=== PATIENT | male | born 1945 | race Caucasian/White ===

== ENCOUNTER 2016-05-25 08:01 | Day surgery (SDC) | payer OTHER ==
[2016-05-11 10:32] VITALS: BMI 35.0
--- NOTE | 2016-05-11 11:11 | PAT Medication Instructions ---
Service Date May 11, 2016. Current Home Medication List Aspirin (Aspir-Low), 81 MG PO QAM Carvedilol (Carvedilol), 12.5 MG PO BID Celecoxib (CeleBREX), 1 CAP PO QAM Cholecalciferol (Vitamin D3), 1 TAB PO QAM Colestipol Hcl (Colestid), 1 GM PO QAM Lisinopril (Lisinopril), 5 MG PO QAM Vitamin E (Vitamin E), 200 UNITS PO QAM [Decongestant], 1 TAB PO HS Medication Instructions For Your Scheduled Surgery - Stopped Already: Celecoxib (CeleBREX), 1 CAP PO QAM - Hold the following medications as of 05/12/16: Vitamin E (Vitamin E), 200 UNITS PO QAM - Hold the following medications the morning of surgery: Aspirin (Aspir-Low), 81 MG PO QAM (per surgeon's instructions) Cholecalciferol (Vitamin D3), 1 TAB PO QAM Colestipol Hcl (Colestid), 1 GM PO QAM Lisinopril (Lisinopril), 5 MG PO QAM - Take the following medications the morning of surgery with a sip of water OTHERWISE NOTHING TO EAT OR DRINK AFTER MIDNIGHT: Carvedilol (Carvedilol), 12.5 MG PO BID - Take the following medications as scheduled the night before surgery: [Decongestant], 1 TAB PO HS Carvedilol (Carvedilol), 12.5 MG PO BID If you have any questions please call us at [phone] or [phone] or [phone]
[2016-05-11 12:15] LABS: BASO % 0.4 %; BASO ABS # 0.04 K/uL (0-0.2); COMPLETE YES; EOS % 2.2 %; HEMATOCRIT 42.3 % (42-52); IG% 0.3 %; LYMPH % 29.9 %; LYMPH ABS # 3.14 K/uL (1.2-3.4); MEAN CELL VOLUME 92.2 fL (80-100); MEAN CORPUSCULAR HEMOGLOBIN 30.7 pg (25-34); MEAN CORPUSCULAR HGB CONC 33.3 g/dl (32-36); MEAN PLATELET VOLUME 9.5 fL (7.4-10.4); MONO % 7.7 %; NEUT % 59.5 %; PLATELET COUNT 248 K/uL (130-400); RED BLOOD COUNT 4.59 M/uL (4.7-6.1); WHITE BLOOD COUNT 10.51 K/uL (4.8-10.8)
[2016-05-11 12:18] LABS: URINE APPEARANCE CLEAR (CLEAR); URINE BILIRUBIN NEG (NEG); URINE COLOR YELLOW; URINE NITRITE NEG (NEG); URINE SPECIFIC GRAVITY 1.015 (1.000-1.030); UROBILINOGEN NEG (NEG)
[2016-05-11 12:20] LABS: MANUAL MICROSCOPIC REQUIRED? NO; REVIEW REQ? NO
[2016-05-11 13:40] LABS: BUN/CREATININE RATIO 19.7 (10-20); CALCIUM 8.8 mg/dl (8.5-10.1); POTASSIUM 4.3 mmol/L (3.5-5.1)
--- NOTE | 2016-05-17 13:33 | History and Physical ---
History & Physical Date of Service May 17, 2016. History & Physical Plan of care discussed with Dr. Wakefield CHIEF COMPLAINT: Bilateral lower extremity neuropathic pain HISTORY OF PRESENT ILLNESS: Mr. Vidal is a 70 year old white male that is well known to the [facility] with a history of spinal stenosis and neurogenic claudication. Patient was experiencing neuropathic pain into the bilateral lower extremities which was causing limitation into his ambulatory and ADL activities. He did receive a spinal cord stimulator implantation on 12/10/2014 and a revision on 12/23/14. Patient was experiencing adequate coverage of the neuropathic pain using the spinal cord stimulator. He did start to experience hip pain and received intra-articular hip injections which also relieved the neuropathic pain in the legs. He has not used the spinal cord stimulator since the hip injection. Mr. Vidal is planning for a hip replacement. The spinal cord stimulator battery is causing discomfort as the battery is located at his belt line. PAST MEDICAL HISTORY: 1. Obstructive sleep apnea 2. History of myocardial infarction 2011 3. Hypertension 4. Coronary artery disease 5. Chronic obstructive pulmonary disease 6. Osteoarthritis 7. History of angioplasty/stent placement 2011 8. Abdominal aortic aneurysm 9. 90 pack history of tobacco abuse 10. Spinal canal stenosis PAST SURGICAL HISTORY: 1. L3-L5 laminectomy and fusion 01/24/2014 2. Coronary artery stent placement 3. Tonsillectomy and Adenoidectomy 4. Bilateral knee arthroscopy 5. Cholecystectomy 6. Herniorrhaphy 7. Colon polypectomy SOCIAL HISTORY: Mr. Vidal is and resides with his spouse. Smokes approximately 1 pack per day with a 90 pack year history. Rare alcohol consumption. Denies any illicit drug use. WORK HISTORY: Patient is retired. 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 He goes to the [place] for months at a time to prospect. ALLERGIES: Cardura MEDICATIONS: 1. Aspirin 81 mg daily 2. Carvedilol 12.5 mg twice daily 3. Celebrex 200 mg daily 4. Lisinopril 5 mg daily REVIEW OF SYSTEMS: Denies any constitutional, cardiac, pulmonary, neurological, GI, , extremity, endocrine, neuro, ENT, dermatological, or musculoskeletal complaints other than stated in HPI PHYSICAL EXAMINATION: VITAL SIGNS: Per admission GENERAL: Mr. Vidal is a 70 year old white male. Well nourished; well appearing; in no acute distress. Cognition intact and speech is appropriate. HEAD: Normocephalic; atraumatic. EYES: Pupils are round, equal, and reactive to light; EOM intact. ENT: No external ear discharge or lesions. No rhinorrhea or epistaxis. No mucosal lesions. NECK: Full ROM; trachea is midline; no TTP; no cervical lymphadenopathy. CARDIAC: Regular rate and rhythm. No murmur, rubs, or gallops. PULM: Clear to auscultation. No wheezes, rales, or rhonchi. CHEST: Regular chest respiration and excursion. + barrel chested EXTREMTIES: There is 5/5 strength of the bilateral lower extremities. Sensation of the legs are equal bilaterally. Negative straight leg raise bilaterally BACK: Complete loss of lumbar lordosis. Well healed surgical incision of the entire lumbar spine. Midline and facet joints are nontender. No SI joint tenderness. No tenderness of the quadratus lumborum, gluteal, or piriformis musculature NEURO: CN II-XII grossly intact with no focal deficits noted. AAO x 3. Patellar Reflex L +1 R +1 Achilles Reflex L +1 R +1 SKIN: Spinal cord stimulator battery is located in the right gluteus without erythema, skin breakdown, or erythema. Tenderness of the battery site. ASSESSMENT: Bilateral lower extremity neurogenic claudication secondary to lumbar spinal canal stenosis status post L3 through L5 lumbar decompression TREATMENT: Mr. Vidal has chronic bilateral lower extremity neuropathic pain and has tried numerous medications and eventually a spinal cord stimulator implantation. Patient was initially experiencing adequate pain relief but the relief is no longer being provided. He does have bilateral hip pain and received intra-articular hip injections which provided pain relief and he is planning on receiving hip replacements. As the spinal cord stimulator battery is at his belt line and rubs against his pain which is uncomfortable to the patient as well as the stimulator no longer providing pain relief, he would like the spinal cord stimulator removed. He is scheduled for the battery removal on 05/25/16. Risks and benefits were reviewed with the patient. The procedure was explained to the patient. Risks and benefits were explained and he understands. Patient would like to proceed with the surgery.
[~2016-05-25] VITALS: Ht 180.3 cm; Wt 114.3 kg
[~2016-05-25 08:01] MED LIST: ASPI81TA25 PO; CEFAZOLIN 2000 MG/60 ML D5W IV SCH; CHOL1000 PO; CLB/200 PO; COLE1TAB PO; CRG125 PO; DECONGESTANT PO; LACTATED RINGER'S 1000ML 1,000 ML IV SCH; LSN5 PO; VITA200C5 PO
[2016-05-25] MEDS ORDERED: ACET-1311 PO (08:47)
[2016-05-25 08:48] VITALS: BP 136/79; PULSE 72; TEMP 36.4; O2SAT 97; Ht 180.3 cm; Wt 114.3 kg
[2016-05-25] MEDS ORDERED: FENTANYL CITRATE INJ 50 MCG/1 ML 2 ML VIAL IV PRN (09:15)
[2016-05-25] MEDS ORDERED: MEPERIDINE HCL 25 MG/ML CARP IV PRN (09:15)
[2016-05-25] MEDS ORDERED: HYDROmorphone INJ 1 MG/ML SYR IV PRN (09:15)
[2016-05-25] MEDS ORDERED: ATROPINE SULFATE 0.1 MG/ML 5ML SYR IV PRN (09:15)
[2016-05-25] MEDS ORDERED: ONDANSETRON INJ 2 MG/ML 2 ML VIAL IV PRN (09:15)
[2016-05-25] MEDS ORDERED: LABETALOL HCL IV 5 MG/ML 20ML IV PRN (09:15)
[2016-05-25] MEDS ORDERED: EpHEDrine SULFATE INJ 50 MG/ML AMP IV PRN (09:15)
[2016-05-25] MEDS ORDERED: PROPOFOL IV EMULSION 10 MG/ML 20 ML VIAL IV ONE (10:00)
[2016-05-25] MEDS ORDERED: ROCURONIUM BROMIDE 10 MG/ML 5 ML VIAL ONE (10:00)
[2016-05-25] MEDS ORDERED: MIDAZOLAM HCL 1 MG/ML 2ML VIAL ONE (10:00)
[2016-05-25] MEDS ORDERED: LIDOCAINE HCL 2% 2 ML VIAL (20MG/ML) ONE (10:00)
[2016-05-25] MEDS ORDERED: FENTANYL CITRATE INJ 50 MCG/1 ML 2 ML VIAL ONE (10:01)
--- NOTE | 2016-05-25 10:14 | History & Physical Bridge Note ---
H&P Re-Evaluation Bridge Note: I have examined the patient, reviewed the History & Physical and in the interval since the performance of the History & Physical I have noted the following changes of clinical significance: No changes noted. H&P done by Chuyita Daigle PA-C was reviewed. It indicates that the patient scheduled for a battery replacement of the spinal cord stimulant. This is incorrect and the patient is scheduled for explantation of the entire spinal cord stimulator battery including the lead and the battery as the patient feels that it is not benefiting him anymore and is not necessary since he underwent a total hip replacement on the left side. He has noted complete resolution of his neuropathic pain and left lower extremity and the present time the stimulator battery is irritating him when he wears a belt. In because he is not using it, he wishes to have the entire system explanted. He is signed a consent authorizing to proceed.
--- NOTE | 2016-05-25 10:29 | Discharge Instructions ---
Discharge Instructions Date of Service May 25, 2016. Visit Reason for Visit: Pain At Spinal Cord Stimulator Battery Site Discharge Discharge Diagnosis / Problem: Explantiaotion of spnal cord system Discharge Goals Goal(s): Decrease discomfort Medications Stopped Medications Name(s): None Activity Recommendations Activity Limitations: as noted below Lifting Limitations: no more than 5 pounds, gradually increase as tolerated Exercise/Sports Limitations: gradually increase as tolerated May Resume Sexual Activity: when tolerated Shower/Bathe: may shower/bathe in 3 days Driving or Machine Use: resume 3 days after discharge Anesthesia . Post Anesthesia Instructions: If you have had General Anesthesia or IV Sedation: * Do not drive today. * Resume driving when surgeon permits. * Do not make important decisions or sign legal documents today. * Call surgeon for: 1. Temperature elevations greater than 101 degrees F. 2. Uncontrollable pain. 3. Excessive bleeding. 4. Persistent nausea and vomiting. 5. Medication intolerance (nausea, vomiting or rash). * For nausea and vomiting use only clear liquids such as: tea, soda, bouillon until nausea subsides, then gradually increase diet as tolerated. * If you have any concerns or questions, call your surgeon's office. If physician is unavailable and it is an emergency, call 911 or go to the nearest emergency room. . Diet Recommendations Recommended Home Diet: resume previous diet Procedures Procedures Performed: Explantation of spinal cord stimulator. Pending Studies Studies pending at discharge: no Medical Emergencies . Who to Call and When: Medical Emergencies: If at any time you feel your situation is an emergency, please call 911 immediately. . Non-Emergent Contact Non-Emergency issues call your: Primary Care Provider Call Non-Emergent contact if: temperature is above 100.5, your pain is not controlled, wound has increased drainage, wound has increased redness, you have any medication questions . . "Provider Documentation" section prepared by Ramsey Wakefield.
[2016-05-25] MEDS ORDERED: HYDROCODONE/ACETAMOPHEN 5/325MG TAB PO PRN (10:30)
[2016-05-25] MEDS ORDERED: BUPIVACAINE/EPINEPHRINE 0.25% 1:200,000 30 ML VIAL ONE (11:00)
[2016-05-25] MEDS ORDERED: BACITRACIN 50000 UNIT VIAL ONE (11:16)
[2016-05-25] MEDS ORDERED: PHENYLEPHRINE 100MCG/ML 5ML SYR ONE (11:38)
[2016-05-25] MEDS ORDERED: EpHEDrine SULFATE 50MG/5ML SYR ONE (11:38)
[2016-05-25] MEDS ORDERED: GLYCOPYRROLATE INJ 0.2 MG/ML VIAL ONE (11:38)
[2016-05-25] MEDS ORDERED: NEOSTIGMINE METHYLSULFATE 1 MG/ML 10ML VIAL ONE (11:38)
[2016-05-25] MEDS ORDERED: DEXAMETHASONE SOD INJ 4 MG/ML VIAL ONE (11:50)
[2016-05-25] MEDS ORDERED: ONDANSETRON INJ 2 MG/ML 2 ML VIAL ONE (11:50)
--- NOTE | 2016-05-25 12:34 | [facility] Operative Report ---
Operative Report Operative Date May 25, 2016. Pre-Operative Diagnosis Patient requesting removal of spinal cord stimulator system. Post-Operative Diagnosis same Procedure(s) Performed Explantation of spinal cord simulator leads and battery. Surgeon Dr. Wakefield Truck Washer Surgeon(s) Shivam Borrego -PAC Estimated Blood Loss 5 ML Findings See below. Specimens A: Spinal Cord Stimulator , leads and battery. Drains none Anesthesia Gen. endotracheal. Complication(s) None Disposition Recovery Room / PACU Description of Procedure REMOVAL OF IMPLANTED SPINAL CORD STIMULATOR SYSTEM Procedure: Explantation of spinal cord similar system. Preoperative Diagnosis: Resolved neuropathic pain. Patient requested no spinal cord similar system. Postoperative diagnosis: Same Surgeon: Dr. Wakefield Anesthesia: General/endotracheal Estimated blood loss: 10 mL Complications: None Specimen sent to pathology: Spinal cord similar battery and leads. Prior to starting, the Patients diagnosis and the procedure were reviewed with the patient in detail. Possible risks and complications including infection, bleeding, damage to surrounding structures and increased pain were discussed. Alternative therapies were also reviewed. Patients questions were answered and they agreed to proceed. Informed consent was obtained. Allergies and medication list was reviewed. The patient was brought to the procedure room. Immediately prior to starting the procedure, a time out was conducted with the staff and the patient where the patient was identified, proposed procedure was verified, consent was reviewed and the proper site for the planned procedure was identified. He was given preoperative antibiotics consisting of 2 grams of cefazolin intravenously. General anesthesia was induced and he was placed in prone position for the procedure. On examination, no signs of skin breakdown or infection were noted at the surgical site. The site was cleansed with DuraPrep followed by Betadine. Sterile drapes were applied. Fluoroscopy was utilized to identify the components of the spinal cord stimulator system including the leads. Using scalpel to incise the skin and then electrocautery for subcutaneous layers , the anchoring device for the leads was identified. Retaining sutures removed. The lead was easily removed intact without difficulty. Next, the pocket site in the right proximal buttock was opened up using scalpel and electrocautery and the anchoring sutures were removed. The remaining wires were also pull-through the pocket site uneventfully. Both wounds were then irrigated with bacitracin-containing sterile saline and hemostasis was assured using electrocautery. The wounds were then closed continuous with 0 V-Lock sutures for the deeper layers and a running 3-0 V-Lock sutures for the subcuticular. Prineo were then applied to the skin. 4x4 gauze and micropore tape dressing was applied along with sterile gauze and hypoallergenic tape. Patient was allowed to emerge from the anesthesia. Patient was then transported to the recovery room. No complications were encountered. Discharge instructions have been provided to patient and the voiced understanding. Follow-up visit in the office has been arranged. I attest to the content of the Intraoperative Record and any orders documented therein. Any exceptions are noted below.
[2016-05-25 13:09] VITALS: BP 129/69; PULSE 72; TEMP 36.5; O2SAT 95
--- NOTE | 2016-05-25 13:28 | Anesthesiology Progress Note ---
Anesthesia Post Op Note Date & Time May 25, 2016 at 13:27 Vital Signs Pain Intensity: 0 Vital Signs Past 12 Hours Date Time Temp Pulse Resp B/P Pulse Ox O2 Delivery O2 Flow Rate FiO2 05/25/16 13:09 36.5 72 20 129/69 95 Room Air 05/25/16 13:05 36.4 70 20 120/72 94 Room Air 05/25/16 12:55 75 20 123/75 95 Room Air 05/25/16 12:45 74 16 101/50 97 Room Air 05/25/16 12:35 76 16 100/47 97 Room Air 05/25/16 12:27 36.5 80 16 135/80 95 Mask 10 05/25/16 08:48 36.4 72 18 136/79 97 Room Air Notes Mental Status: alert / awake / arousable, participated in evaluation Pt Amnestic to Procedure: Yes Nausea / Vomiting: adequately controlled Pain: adequately controlled Airway Patency, RR, SpO2: stable & adequate BP & HR: stable & adequate Hydration State: stable & adequate Anesthetic Complications: no major complications apparent
[2016-05-25 13:40] VITALS: BP 129/69; PULSE 71; O2SAT 93
[2016-05-25 14:07] VITALS: BP 143/79; PULSE 67; TEMP 36.5; O2SAT 93
== END 2016-05-25 14:07 | disposition home or self-care (01) ==
LOC: C.ACU 08:01
PROVIDERS: ATTEND Anesthesiology
DX: T85.840A Pain due to nervous system prosthetic devices, implants and grafts, initial encounter (principal); Y84.8 Other medical procedures as the cause of abnormal reaction of the patient, or of later complication, without mention of misadventure at the time of the procedure; M48.06 Spinal stenosis, lumbar region; I25.10 Atherosclerotic heart disease of native coronary artery without angina pectoris; I10 Essential (primary) hypertension; J44.9 Chronic obstructive pulmonary disease, unspecified; M19.90 Unspecified osteoarthritis, unspecified site; I25.2 Old myocardial infarction; G47.33 Obstructive sleep apnea (adult) (pediatric); Z79.82 Long term (current) use of aspirin; F17.200 Nicotine dependence, unspecified, uncomplicated; Z79.899 Other long term (current) drug therapy; Z98.890 Other specified postprocedural states; Z90.89 Acquired absence of other organs; Z86.718 Personal history of other venous thrombosis and embolism; Z90.49 Acquired absence of other specified parts of digestive tract; Z96.642 Presence of left artificial hip joint; E66.9 Obesity, unspecified